=== PATIENT | female | born 1990 | race Caucasian/White ===

== ENCOUNTER → 2021-01-08 | Outpatient (CLI) | payer OTHER ==
--- NOTE | 2021-01-08 16:39 | RAD ---
XR OS CALCIS_LT 2+ VIEWS History: Sudden drop and landed on heel. Right calcaneus pain. Comparison: None. Technique: 2 views of the right calcaneus. Findings: Osseous mineralization is normal. No fracture or dislocaton. Small plantar enthesophyte. Soft tissues are unremarkable. Impression: 1. No acute osseous abnormality of the right calcaneus. Electronically signed by: Jordin Verdugo MD (01/08/2021 4:37 PM) [facility]
--- NOTE | 2021-01-08 16:41 | RAD ---
XR FOOT_RIGHT 3 VIEWS History: Sudden drop and right foot pain. Comparison: Heel x-rays 01/08/2021. Technique: 3 views of the right foot. Findings: Osseous mineralization is normal. No fracture or dislocaton. Small plantar calcaneal enthesophyte. Th e Lisfranc is normally aligned on nonweightbearing views. Soft tissues are unremarkable. Impression: 1. No acute osseous abnormality of the right foot. Electronically signed by: Jordin Verdugo MD (01/08/2021 4:39 PM) [facility]
== END ==
LOC: RAD 16:13
PROVIDERS: ATTEND Registered Nurse
DX: M77.31 Calcaneal spur, right foot (principal)
CPT/HCPCS: 73630; 73650